=== PATIENT | male | born 1990 | race African-American/Black ===

== ENCOUNTER 2020-01-01 15:37 | Emergency (ER) | payer SELFPAY ==
[~2020-01-01] VITALS: Ht 172.7 cm; Wt 97.5 kg
[~2020-01-01 15:37] MED LIST: IBUP100T36 PO
[2020-01-01 15:45] VITALS: BP_SYST 155
[2020-01-01 16:30] VITALS: BP_SYST 155
== END 2020-01-01 16:30 | disposition home or self-care (01) ==
LOC: SED 15:37
DX: S90.31XA Contusion of right foot, initial encounter (principal); V29.9XXA Motorcycle rider (driver) (passenger) injured in unspecified traffic accident, initial encounter; Y93.89 Activity, other specified; Y92.413 State road as the place of occurrence of the external cause; Y99.8 Other external cause status
CPT/HCPCS: 73650-TC; 99283